=== PATIENT | female | born 1980 | race Caucasian/White ===

== ENCOUNTER 2017-08-26 14:52 | Emergency (ER) | payer OTHER ==
[~2017-08-26] VITALS: Ht 157.5 cm; Wt 72.6 kg
[~2017-08-26 14:52] MED LIST: ACYC200; Dicloxacillin500 MG PO; LEVSOD50; Norco 5-325 Ta1 EACH PO; Omeprazole20 M1; Verotin-Gr Cap1 EACH PO; Zofran Odt4 MG SL
[2017-08-26] MEDS ORDERED: Dicloxacillin500 MG PO (16:08)
[2018-01-20] MEDS ORDERED: TRAM50 PO (10:27)
[2018-01-20] MEDS ORDERED: Synthroid112 MCG PO (10:27)
[2018-01-20] MEDS ORDERED: ACYC400 PO (10:28)
[2018-01-20] MEDS ORDERED: [UNRECOGNIZED DRUG - OTHER] PO (10:28)
== END 2017-08-26 16:14 | disposition home or self-care (01) ==
LOC: ER 14:52
DX: N64.52 Nipple discharge (principal); Z79.899 Other long term (current) drug therapy
CPT/HCPCS: 76642; 87070; 87075; 87205; 99284

== ENCOUNTER → 2017-10-21 | Outpatient (CLI) | payer OTHER ==
[~2017-10-21] MED LIST changes: +ACYC400 PO; +Synthroid112 MCG PO; +TRAM50 PO; +[UNRECOGNIZED DRUG - OTHER] PO
== END | disposition home or self-care (01) ==
LOC: LAB EV 18:12
DX: N63.11 Unspecified lump in the right breast, upper outer quadrant (principal); N64.52 Nipple discharge
CPT/HCPCS: 87070; 87205

== ENCOUNTER 2018-01-21 08:37 | Day surgery (SDC) | payer OTHER ==
[~2018-01-21] VITALS: Ht 154.9 cm; Wt 78.5 kg
== END 2018-01-21 23:35 | disposition home or self-care (01) ==
LOC: ORSCMMR 08:37 → ORD 10:15 → ORSCMMR 23:35
PROVIDERS: Surgery
PROC: 0JH60WZ Insertion of Totally Implantable Vascular Access Device into Chest Subcutaneous Tissue and Fascia, Open Approach (ICD-10-PCS; principal; 2018-01-21 10:15)
DX: C50.811 Malignant neoplasm of overlapping sites of right female breast (principal); C77.3 Secondary and unspecified malignant neoplasm of axilla and upper limb lymph nodes; Z17.0 Estrogen receptor positive status [ER+]; E03.9 Hypothyroidism, unspecified; E78.5 Hyperlipidemia, unspecified; K21.9 Gastro-esophageal reflux disease without esophagitis; Z79.899 Other long term (current) drug therapy; Z87.891 Personal history of nicotine dependence
CPT/HCPCS: 77001; C1788; J0690; J1100; J1642; J2250; J2405; J2550; J2710; J3010; J7120

== ENCOUNTER → 2018-02-24 | Outpatient (CLI) | payer OTHER ==
[2018-02-24 12:05] LABS: BASOPHILS ABSOLUTE AUTO 0.01 K/mm3 (0.00-0.23); BASOPHILS PERCENT AUTO 0 % (0-2); EOSINOPHILS PERCENT AUTO 0 % (0-6); Hematocrit 36.1 % (33.0-51.0); Hemoglobin 12.1 g/dL (11.5-16.0); IMMATURE GRAN ABSOLUTE AUTO 0.02 K/mm3 (0.00-0.10); IMMATURE GRAN PERCENT AUTO 1 % (0-1); LYMPHOCYTES ABSOLUTE AUTO 0.45 K/mm3 (0.84-5.20); LYMPHOCYTES PERCENT AUTO 10 % (21-46); MONOCYTES PERCENT AUTO 7 % (4-13); Mean Corpuscular HGB 30.9 pg (26.0-34.0); Mean Corpuscular HGB Conc 33.5 g/dL (31.5-36.5); Mean Corpuscular Volume 92 fL (80-100); Mean Platelet Volume 11.1 fL (9.1-12.4); NEUTROPHILS ABSOLUTE AUTO 3.65 K/mm3 (1.96-9.15); NEUTROPHILS PERCENT AUTO 82 % (41-73); Platelet Count 205 K/mm3 (150-400); RDW Coefficient Variation 14.6 % (11.7-14.2); RDW Standard Deviation 47.8 fL (35.1-46.3); Red Blood Cell Count 3.91 M/mm3 (3.80-5.20); White Blood Cell Count 4.43 K/mm3 (4.00-11.30)
== END ==
LOC: LAB SHORT 11:36 → LAB 11:36
PROVIDERS: Internal Medicine Hematology & Oncology
DX: C50.811 Malignant neoplasm of overlapping sites of right female breast (principal); C77.3 Secondary and unspecified malignant neoplasm of axilla and upper limb lymph nodes; D70.1 Agranulocytosis secondary to cancer chemotherapy; T45.1X5A Adverse effect of antineoplastic and immunosuppressive drugs, initial encounter
CPT/HCPCS: 85025

== ENCOUNTER 2018-03-03 14:12 | Day surgery (SDC) | payer OTHER | END 2018-03-03 22:48 | disposition home or self-care (01) | LOC: RAD 14:12 | DX: C50.811 Malignant neoplasm of overlapping sites of right female breast (principal); C77.3 Secondary and unspecified malignant neoplasm of axilla and upper limb lymph nodes | CPT/HCPCS: 36598; Q9967 ==

== ENCOUNTER 2018-06-27 08:26 | Day surgery (SDC) | payer OTHER ==
[~2018-06-27] VITALS: Ht 154.9 cm; Wt 70.3 kg
== END 2018-06-27 15:11 | disposition home or self-care (01) ==
LOC: ORSCSDS 08:26 → NM 09:00 → ORSCSDS 09:45
PROVIDERS: Surgery
PROC: 07B50ZX Excision of Right Axillary Lymphatic, Open Approach, Diagnostic (ICD-10-PCS; principal; 2018-06-27 09:45)
PROC: 0HBV0ZZ Excision of Bilateral Breast, Open Approach (ICD-10-PCS; principal; 2018-06-27 09:45)
DX: C50.811 Malignant neoplasm of overlapping sites of right female breast (principal); Z40.01 Encounter for prophylactic removal of breast; D36.0 Benign neoplasm of lymph nodes; Z45.2 Encounter for adjustment and management of vascular access device; Z87.891 Personal history of nicotine dependence; Z79.899 Other long term (current) drug therapy
CPT/HCPCS: 38792; 88307; A9520; J0330; J0690; J1100; J1885; J2250; J2405; J2710; J2765; J3010; J7120; Q9968

== ENCOUNTER 2018-11-10 06:00 | Inpatient (IN) | payer OTHER ==
[~2018-11-10] VITALS: Ht 157.5 cm; Wt 72.6 kg
--- NOTE | 2018-11-10 06:43 | NUR ---
Ambulatory in Day Surgery. Surgical site prepped with 2% Chlorhexidine cloth wipe. History, Chart, Medications and Allergies reviewed before start of procedure. Lungs clear T/O to Auscultation. Patient confirms NPO status and agrees with scheduled surgery. Pre-Op teaching done. Pt verbalizes understanding. Patient reports completing Chlorhexadine shower X2 prior to admission to hospital. Friend, Moon, and mother at bedside.
--- NOTE | 2018-11-10 10:57 | NUR ---
ARRIVED TO ROOM C/O 03/02 ABD PAIN AND NAUSEA. MEDICATED PER ORDERS W/TORADOL AND ZOFRAN. PLACED K PAD TO ABD. DRESSING TO LOWER ABD NEARLY SATURATED W/SANG. DRAINAGE. ABD BINDER IN PLACE. SCANT AMT DRAINAGE TO LUIS ALBERTO PAD. VSS. CALL LIGHT IN REACH.
--- NOTE | 2018-11-10 12:40 | NUR ---
Patient gave consent to student nurse Dani Comer to access charts and work with her tomorrow 11/11/18
--- NOTE | 2018-11-10 18:19 | NUR ---
SUMMARY PT S/P ANA THIS SHIFT. VSS. SURGICAL DRESSING TO LOWER TRANSVERSE ABDOMEN SATURATED BY [address]. [address] CLEMENTS. HAVE NOT REINFORCED DRESSING, NO LEAKING NOTED FROM DRESSING. MODERATE AMT SANG DRAINAGE NOTED TO LUIS ALBERTO PAD. NEW PAD PLACED THIS EVENING. PT GOT UP AND AMBULATED W/SBA TO DOOR AND BACK. MEDICATED PER ORDERS FOR PAIN. PT REPORTS PAIN AT 3/10 TO ABDOMEN AT THIS TIME. TOLERATED DINNER. PLEASANT AND COOPERATIVE. USES CALL LIGHT APPROPRIATELY. MULTIPLE VISITORS AT BEDSIDE.
[2018-11-11 05:00] LABS: BASOPHILS ABSOLUTE AUTO 0.01 K/mm3 (0.00-0.23); BASOPHILS PERCENT AUTO 0 % (0-2); EOSINOPHILS PERCENT AUTO 0 % (0-6); Hemoglobin 9.3 g/dL (11.5-16.0); IMMATURE GRAN ABSOLUTE AUTO 0.05 K/mm3 (0.00-0.10); IMMATURE GRAN PERCENT AUTO 1 % (0-1); LYMPHOCYTES ABSOLUTE AUTO 0.53 K/mm3 (0.84-5.20); LYMPHOCYTES PERCENT AUTO 6 % (21-46); MONOCYTES ABSOLUTE AUTO 0.66 K/mm3 (0.16-1.47); MONOCYTES PERCENT AUTO 8 % (4-13); Mean Corpuscular HGB Conc 32.1 g/dL (31.5-36.5); Mean Corpuscular Volume 100 fL (80-100); Mean Platelet Volume 10.3 fL (9.1-12.4); NEUTROPHILS ABSOLUTE AUTO 7.32 K/mm3 (1.96-9.15); NEUTROPHILS PERCENT AUTO 85 % (41-73); Platelet Count 200 K/mm3 (150-400); RDW Coefficient Variation 13.4 % (11.7-14.2); RDW Standard Deviation 48.9 fL (35.1-46.3); Red Blood Cell Count 2.91 M/mm3 (3.80-5.20); White Blood Cell Count 8.57 K/mm3 (4.00-11.30)
--- NOTE | 2018-11-11 06:47 | NUR ---
SUMMARY PT WITH DRIED BLOODY DRNG TO ABD DSNG NOTED PER DAY RN WHICH WAS INDICATED REPORTED TO DOCTOR, BUT NO FRESH BLEEDING NOTED. PT TOLERATING PO PAIN MEDS WITHOUT NAUSEA WHICH SHE REPORTS EFFECTIVE. PASSING SMALL AMNTS FLATUS. DEWEY DCD THIS AM PER ORDERS.
[2018-11-11] MEDS ORDERED: Percocet 5-3251 EACH PO (16:20)
[2018-11-11] MEDS ORDERED: IBUP800 PO (16:20)
[2018-11-11] MEDS ORDERED: ONDA4ODT MM (16:20)
--- NOTE | 2018-11-11 18:20 | NUR ---
SUMMARY NO ACUTE CHANGES T/O SHIFT. PT PLEASANT AND COOPERATIVE. HAS HAD BOUTS OF NAUSEA OFF AND ON T/O DAY. MEDICATED THIS EVENING FOR PAIN AND NAUSEA. VOIDING W/O DIFFICULTY. AMBULATED IN HALLS, PASSING FLATUS.
--- NOTE | 2018-11-11 18:32 | NUR ---
PT NOT DC'ING HOME DUE TO NAUSEA.
--- NOTE | 2018-11-12 04:57 | NUR ---
SUMMARY NO ACUTE CHANGES NOTED THROUGH THE NIGHT. PT IS TOLERATING PO INTAKE. VOIDING WNL. DENIES VAGINAL DISCHARGE. STERI STRIPS REMAIN INTACT, DRIED DRAINAGE PRESENT. PT CONTINUES TO BE NAUSEOUS INTERMITTENT. PT ENCOURAGED TO TRY 1 PERCOCET FOR PAIN INSTEAD OF 2 EVERY 4 HRS. AND TO ALSO EAT A SNACK BEFORE TAKING THEM. WCTM AT THIS TIME AND WILL REPORT TO DAY RN. ABD BINDER REMAINS IN PLACE. PT REFUSED TO WEAR SCD'S THROUGH THE NIGHT. CALL LIGHT IN REACH.
--- NOTE | 2018-11-12 07:00 | NUR ---
REPORT FROM NORY Stallings RN. ASSUMED PT CARE. PT RESTING IN POSITION OF COMFORT.
--- NOTE | 2018-11-12 08:08 | NUR ---
PT MEDICATED PER EMAR ORDERS. PT UP TO RR WITH NO ASSISTANCE. PT STATES NAUSEA IMPROVED. PLAN TO DC TODAY.
--- NOTE | 2018-11-12 08:48 | NUR ---
DR CLEMENTS AWARE OF PT STAYING THE NIGHT. OK TO DC TODAY.
--- NOTE | 2018-11-12 08:50 | NUR ---
PT SEEMS MORE RESTFUL, WILL CONT TO MONITOR.
--- NOTE | 2018-11-12 10:36 | NUR ---
PT AWARE OF DC. PT PLANS TO CALL FRIEND TO LET HER KNOW. CALL LIGHT IN REACH. PAIN MANAGED AT THIS TIME. DENIES NAUSEA.
--- NOTE | 2018-11-12 12:05 | NUR ---
PT MEDICATED WITH ZOFRAN AND PERCOCET PER MAR. PT PENDING DC. FRIEND TO COME DEVELOPMENT DIRECTOR. PT FRIEND GOT RX FILLED.
--- NOTE | 2018-11-12 12:36 | NUR ---
DISCHARGE PT DISCHARGED HOME FROM UNIT AT APROX 1230. PT GIVEN WRITTEN AND VERBAL DISCHARGE INSTRUCTIONS AND VERBALIZED UNDERSTANDING OF THESE INSTRUCTIONS. IV REMOVED, PT TOLERATED WELL.
== END 2018-11-12 12:41 | disposition home or self-care (01) | DRG 581 ==
LOC: ORSCMMR 06:00 → SURS 06:01 → ORSCMMR 07:30 → ORD 07:30 → SURS 10:39 → ORSCMMR 10:39 → SURS 11-12 12:41
PROVIDERS: ADMIT Obstetrics & Gynecology
PROC: 0UT20ZZ Resection of Bilateral Ovaries, Open Approach (ICD-10-PCS; 2018-11-10)
PROC: 0UT70ZZ Resection of Bilateral Fallopian Tubes, Open Approach (ICD-10-PCS; 2018-11-10)
PROC: 0UT90ZZ Resection of Uterus, Open Approach (ICD-10-PCS; principal; 2018-11-10 07:30)
DX: C50.919 Malignant neoplasm of unspecified site of unspecified female breast (principal); N92.1 Excessive and frequent menstruation with irregular cycle; Z17.0 Estrogen receptor positive status [ER+]; E03.9 Hypothyroidism, unspecified; K21.9 Gastro-esophageal reflux disease without esophagitis; E78.5 Hyperlipidemia, unspecified; Z87.891 Personal history of nicotine dependence
CPT/HCPCS: 36415; 85025; 88307; J0690; J1100; J1885; J2250; J2370; J2405; J2710; J3010; J7120

== ENCOUNTER 2019-03-17 06:07 | Day surgery (SDC) | payer OTHER ==
[~2019-03-17] VITALS: Ht 154.9 cm; Wt 71.1 kg
[~2019-03-17 06:07] MED LIST changes: +IBUP800 PO; +ONDA4ODT MM; +Percocet 5-3251 EACH PO
[2019-03-17] MEDS ORDERED: ACYC400 PO (06:42)
== END 2019-03-17 08:25 | disposition home or self-care (01) ==
LOC: ORSCSDS 06:07
PROVIDERS: Orthopaedic Surgery
PROC: 01N50ZZ Release Median Nerve, Open Approach (ICD-10-PCS; principal; 2019-03-17 07:30)
DX: G56.01 Carpal tunnel syndrome, right upper limb (principal); F17.210 Nicotine dependence, cigarettes, uncomplicated; K21.9 Gastro-esophageal reflux disease without esophagitis; E03.9 Hypothyroidism, unspecified; Z79.899 Other long term (current) drug therapy
CPT/HCPCS: J1100; J1885; J2250; J2405; J2704; J7120

== ENCOUNTER → 2019-10-01 | Outpatient (CLI) | payer MEDICARE, OTHER ==
[2019-10-01 17:25] LABS: BASOPHILS ABSOLUTE AUTO 0.02 K/mm3 (0.00-0.23); BASOPHILS PERCENT AUTO 0 % (0-2); EOSINOPHILS ABSOLUTE AUTO 0.09 K/mm3 (0.00-0.68); EOSINOPHILS PERCENT AUTO 2 % (0-6); Hemoglobin 12.4 g/dL (11.5-16.0); IMMATURE GRAN ABSOLUTE AUTO 0.01 K/mm3 (0.00-0.10); IMMATURE GRAN PERCENT AUTO 0 % (0-1); LYMPHOCYTES PERCENT AUTO 18 % (21-46); MONOCYTES ABSOLUTE AUTO 0.52 K/mm3 (0.16-1.47); MONOCYTES PERCENT AUTO 10 % (4-13); Mean Corpuscular HGB Conc 32.6 g/dL (31.5-36.5); Mean Corpuscular Volume 92 fL (80-100); Mean Platelet Volume 10.8 fL (9.1-12.4); NEUTROPHILS ABSOLUTE AUTO 3.61 K/mm3 (1.96-9.15); NEUTROPHILS PERCENT AUTO 70 % (41-73); Platelet Count 299 K/mm3 (150-400); RDW Coefficient Variation 14.4 % (11.7-14.2); RDW Standard Deviation 48.5 fL (35.1-46.3); Red Blood Cell Count 4.14 M/mm3 (3.80-5.20); White Blood Cell Count 5.15 K/mm3 (4.00-11.30)
[2019-10-01 17:41] LABS: Bun/Creatinine Ratio 12.4 (12.0-20.0); Calcium, Blood 9.1 mg/dL (8.5-10.1); Creatinine, Blood 1.21 mg/dL (0.40-1.00); Thyroid Stimulating Hormone 5.904 uIU/mL (0.360-4.800)
== END | disposition home or self-care (01) ==
LOC: LAB EV 17:17 → LAB SHORT 17:17
PROVIDERS: Physician Assistant Surgical
DX: R53.83 Other fatigue (principal)
CPT/HCPCS: 80048; 84443; 85025

== ENCOUNTER 2020-07-07 06:33 | Emergency (ER) | payer MEDICARE, OTHER ==
[~2020-07-07] VITALS: Ht 154.9 cm; Wt 77.1 kg
[2020-07-07] MEDS ORDERED: ESTROGEN REPLACEMENT (07:05)
[2020-07-07 07:38] LABS: Base Excess Venous 0.4 mmol/L; Bicarbonate Venous 23.6 mmol/L (24.0-30.0); PCO2 Venous 46.5 mmHg (38-42); PO2 Venous 36.3 mmHg (38-42); pH Blood Venous 7.36 (7.34-7.37)
[2020-07-07 07:58] LABS: BASOPHILS ABSOLUTE AUTO 0.04 K/mm3 (0.00-0.23); BASOPHILS PERCENT AUTO 1 % (0-2); EOSINOPHILS ABSOLUTE AUTO 0.13 K/mm3 (0.00-0.68); EOSINOPHILS PERCENT AUTO 3 % (0-6); Hematocrit 44.1 % (33.0-51.0); Hemoglobin 14.3 g/dL (11.5-16.0); IMMATURE GRAN ABSOLUTE AUTO 0.03 K/mm3 (0.00-0.10); IMMATURE GRAN PERCENT AUTO 1 % (0-1); LYMPHOCYTES ABSOLUTE AUTO 0.96 K/mm3 (0.84-5.20); LYMPHOCYTES PERCENT AUTO 22 % (21-46); MONOCYTES PERCENT AUTO 9 % (4-13); Mean Corpuscular HGB 29.9 pg (26.0-34.0); Mean Corpuscular HGB Conc 32.4 g/dL (31.5-36.5); Mean Corpuscular Volume 92 fL (80-100); Mean Platelet Volume 10.7 fL (9.1-12.4); NEUTROPHILS ABSOLUTE AUTO 2.75 K/mm3 (1.96-9.15); NEUTROPHILS PERCENT AUTO 64 % (41-73); Platelet Count 268 K/mm3 (150-400); RDW Coefficient Variation 12.8 % (11.7-14.2); RDW Standard Deviation 43.3 fL (35.1-46.3); Red Blood Cell Count 4.79 M/mm3 (3.80-5.20); White Blood Cell Count 4.31 K/mm3 (4.00-11.30)
[2020-07-07 08:16] LABS: Alanine Aminotransfer (ALT/SGP 31 U/L (12-78); Albumin, Blood 4.3 g/dL (3.4-5.0); Alk Phos 92 U/L (50-136); Anion Gap 7 mmol/L (6-16); Aspartate Aminotrans (AST/SGOT 19 U/L (12-37); Bilirubin, Total 0.5 mg/dL (0.1-1.0); Blood Urea Nitrogen 12 mg/dL (8-24); Bun/Creatinine Ratio 14.6 (12.0-20.0); CO2, Blood 26 mmol/L (21-32); Chloride, Blood 105 mmol/L (98-108); Creatinine, Blood 0.82 mg/dL (0.40-1.00); Globulin, Blood 4.3 g/dL (2.2-4.0); Glomerular Filtration Rate >60 (60-); Glucose, Blood 102 mg/dL (70-99); Potassium, Blood 3.4 mmol/L (3.5-5.5); Sodium, Blood 138 mmol/L (136-145); Total Protein, Blood 8.6 g/dL (6.4-8.2); Troponin I <0.015 ng/mL (0.000-0.040)
[2020-07-07] MEDS ORDERED: Ativan1 MG SL (08:58)
== END 2020-07-07 09:31 | disposition home or self-care (01) ==
LOC: ER 06:33
PROVIDERS: Emergency Medicine
DX: R07.9 Chest pain, unspecified (principal); R20.2 Paresthesia of skin; R20.0 Anesthesia of skin; R55 Syncope and collapse; E03.9 Hypothyroidism, unspecified; Z79.899 Other long term (current) drug therapy; Z90.13 Acquired absence of bilateral breasts and nipples
CPT/HCPCS: 71046; 80053; 82803; 84484; 85025; 85379; 93005; 93010; 96374; 99285-25; J2060

== ENCOUNTER 2022-02-14 14:16 | Emergency (ER) | payer MEDICARE, OTHER ==
[~2022-02-14] VITALS: Ht 154.9 cm; Wt 83.9 kg
[~2022-02-14 14:16] MED LIST changes: +Ativan1 MG SL; +ESTROGEN REPLACEMENT
[2022-02-14] MEDS ORDERED: EUTHYROX100 MC1 PO (14:48)
[2022-02-14] MEDS ORDERED: ANASTROZOLE1 M7 PO (14:49)
[2022-02-14] MEDS ORDERED: TRAZ50 PO (14:49)
[2022-02-14] MEDS ORDERED: XARELTO20 M1 PO (14:49)
== END 2022-02-14 14:50 | disposition home or self-care (01) ==
LOC: ER 14:16
DX: L72.3 Sebaceous cyst (principal); Z85.3 Personal history of malignant neoplasm of breast; Z79.899 Other long term (current) drug therapy; E03.9 Hypothyroidism, unspecified
CPT/HCPCS: 99283

== ENCOUNTER → 2024-06-08 | Outpatient (CLI) | payer MEDICARE ==
[~2024-06-08] MED LIST changes: +ANASTROZOLE1 M7 PO; +EUTHYROX100 MC1 PO; +TRAZ50 PO; +XARELTO20 M1 PO
[2024-06-08 17:25] LABS: BASOPHILS ABSOLUTE AUTO 0.03 K/mm3 (0.00-0.23); BASOPHILS PERCENT AUTO 1 % (0-2); EOSINOPHILS PERCENT AUTO 2 % (0-6); Hematocrit 45.4 % (33.0-51.0); Hemoglobin 14.8 g/dL (11.5-16.0); IMMATURE GRAN ABSOLUTE AUTO 0.01 K/mm3 (0.00-0.10); IMMATURE GRAN PERCENT AUTO 0 % (0-1); LYMPHOCYTES ABSOLUTE AUTO 1.63 K/mm3 (0.84-5.20); LYMPHOCYTES PERCENT AUTO 31 % (21-46); MONOCYTES ABSOLUTE AUTO 0.58 K/mm3 (0.16-1.47); MONOCYTES PERCENT AUTO 11 % (4-13); Mean Corpuscular HGB 29.7 pg (26.0-34.0); Mean Corpuscular HGB Conc 32.6 g/dL (31.5-36.5); Mean Corpuscular Volume 91 fL (80-100); Mean Platelet Volume 10.8 fL (9.1-12.4); NEUTROPHILS ABSOLUTE AUTO 2.93 K/mm3 (1.96-9.15); NEUTROPHILS PERCENT AUTO 55 % (41-73); Platelet Count 279 K/mm3 (150-400); RDW Coefficient Variation 13.5 % (11.7-14.2); RDW Standard Deviation 44.7 fL (35.1-46.3); Red Blood Cell Count 4.98 M/mm3 (3.80-5.20); White Blood Cell Count 5.28 K/mm3 (4.00-11.30)
[2024-06-08 17:43] LABS: Albumin, Blood 4.4 g/dL (3.4-5.0); Albumin/Globulin Ratio 1.1 (0.8-1.8); Bilirubin, Total 0.7 mg/dL (0.1-1.0); Bun/Creatinine Ratio 6.3 (12.0-20.0); Calcium, Blood 9.8 mg/dL (8.5-10.1); Creatinine, Blood 0.96 mg/dL (0.40-1.00); Free Thyroxine 1.38 ng/dL (0.70-1.60); Globulin, Blood 3.9 g/dL (2.2-4.0); Potassium, Blood 3.8 mmol/L (3.5-5.5); Thyroid Stimulating Hormone 1.32 uIU/mL (0.360-4.800); Total Protein, Blood 8.3 g/dL (6.4-8.2)
== END ==
LOC: LAB 17:18 → LAB SHORT 17:18
PROVIDERS: Physician Assistant
DX: E03.9 Hypothyroidism, unspecified (principal); R53.83 Other fatigue
CPT/HCPCS: 80053; 83690; 84439; 84443; 84481; 85025